=== PATIENT | male | born 1975 | race Hispanic/Latino ===

== ENCOUNTER 2018-02-02 17:52 | Emergency (ER) | payer SELFPAY ==
[~2018-02-02] VITALS: Ht 157.5 cm; Wt 99.8 kg
[2018-02-02] MEDS ORDERED: NORCO 5-325 TA1 EACH PO (20:34)
== END 2018-02-02 20:48 | disposition home or self-care (01) ==
LOC: ED 17:52
DX: S29.012A Strain of muscle and tendon of back wall of thorax, initial encounter (principal); J20.9 Acute bronchitis, unspecified; X58.XXXA Exposure to other specified factors, initial encounter
CPT/HCPCS: 71046; 99283